=== PATIENT | female | born 1985 | race African-American/Black ===

== ENCOUNTER 2018-07-24 19:02 | Inpatient (IN) | payer OTHER ==
[~2018-07-24] VITALS: Ht 165.1 cm; Wt 92.1 kg
[2018-07-24 19:21] VITALS: Ht 165.1 cm; Wt 92.1 kg
[2018-07-25 02:06] LABS: BASOPHIL % 0.2 % (0-2); PLATELET COUNT 190 x10^3mcL (130-400)
[2018-07-25 02:07] LABS: CALCIUM 8.1 mg/dL (8.5-10.1); CARBON DIOXIDE 24.2 mmol/L (21-32); CHLORIDE SERUM 105 mmol/L (98-107); CREATININE SERUM 0.9 mg/dL (0.6-1.0); GFR1 > 60 mL/min; GLUCOSE SERUM 112 mg/dL (74-106); POTASSIUM SERUM 4.2 mmol/L (3.5-5.1); SODIUM SERUM 136 mmol/L (136-145)
[2018-07-25 02:10] LABS: ALBUMIN 3.6 g/dL (3.4-5.0); ALKALINE PHOSPHATASE 58 U/L (46-116); ALT/SGPT 16 U/L (14-59); AST/SGOT 18 U/L (15-37); BILIRUBIN TOTAL 0.29 mg/dL (0.20-1.00); RED CELL DISTRIBUTION WIDTH 15.6 % (11.5-14.5); TOTAL PROTEIN, SERUM 7.9 g/dL (6.4-8.2)
[2018-07-25] MEDS ORDERED: IMITREX100 MG PO (03:46)
[2018-07-25] MEDS ORDERED: ROBAXIN500 MG (03:47)
[2018-07-25] MEDS ORDERED: PERCOCET1 TA5 PO (03:47)
[2018-07-25 03:55] LABS: PHOSPHOROUS 2.4 mg/dL (2.5-4.9)
[2018-07-25 04:00] LABS: FREE T4 0.84 ng/dL (0.76-1.46); FREE THYROXINE INDEX 1.7 ug/dL (1.4-4.5); T4(THYROXINE) 4.7 ug/dL (4.7-13.3)
[2018-07-25 04:10] LABS: T3 TOTAL 0.75 ng/mL
[2018-07-25 04:23] VITALS: BP 113/55
[2018-07-25 09:55] VITALS: BP 123/71
[2018-07-25 18:13] VITALS: BP 140/69
[2018-07-25 21:04] VITALS: BP 123/60
[2018-07-26 05:05] VITALS: BP 115/58
[2018-07-26 07:07] VITALS: BP 117/57
[2018-07-26 10:52] VITALS: BP 117/57
== END 2018-07-26 13:21 | disposition home or self-care (01) | DRG 54 ==
LOC: ED 19:02 → MU 07-25 03:16
PROVIDERS: Emergency Medicine; Internal Medicine
DX: G43.919 Migraine, unspecified, intractable, without status migrainosus (principal); E83.39 Other disorders of phosphorus metabolism; E83.51 Hypocalcemia; T14.90XS Injury, unspecified, sequela; Z56.0 Unemployment, unspecified; Z68.32 Body mass index [BMI] 32.0-32.9, adult; W34.00XS Accidental discharge from unspecified firearms or gun, sequela
CPT/HCPCS: 84439; J1100; J1885; J2270; J2765; J3030; J3490; J7030; Q0092

== ENCOUNTER 2019-09-20 09:41 | Emergency (ER) | payer OTHER ==
[~2019-09-20] VITALS: Ht 165.1 cm; Wt 102.1 kg
[~2019-09-20 09:41] MED LIST: IMITREX100 MG PO; PERCOCET1 TA5 PO; ROBAXIN500 MG
[2019-09-20 09:49] VITALS: Ht 165.1 cm; Wt 102.1 kg
[2019-09-20 11:00] VITALS: BP 138/96
== END 2019-09-20 11:00 | disposition home or self-care (01) ==
LOC: ED 09:41
DX: M54.12 Radiculopathy, cervical region (principal); E66.9 Obesity, unspecified; G43.909 Migraine, unspecified, not intractable, without status migrainosus; Z68.37 Body mass index [BMI] 37.0-37.9, adult; Z98.890 Other specified postprocedural states
CPT/HCPCS: J1100; J1885

== ENCOUNTER 2020-09-15 19:57 | Emergency (ER) | payer OTHER ==
[~2020-09-15] VITALS: Ht 165.1 cm; Wt 106.1 kg
[2020-09-15 20:05] VITALS: Ht 165.1 cm; Wt 106.1 kg
[2020-09-15 22:08] VITALS: BP 133/72
== END 2020-09-15 22:09 | disposition home or self-care (01) ==
LOC: ED 19:57
DX: I88.9 Nonspecific lymphadenitis, unspecified (principal); G43.909 Migraine, unspecified, not intractable, without status migrainosus
CPT/HCPCS: J1100; J1885